=== PATIENT | male | born 1990 | race Caucasian/White ===

== ENCOUNTER 2018-03-25 19:07 | Emergency (ER) | payer MEDICAID ==
[~2018-03-25] VITALS: Ht 188 cm; Wt 95.5 kg
[2018-03-25 19:14] VITALS: Ht 188 cm; Wt 95.5 kg
[2018-03-25 19:48] LABS: APPEARANCE CLEAR (CLEAR); BILIRUBIN NEGATIVE (NEGATIVE); COLOR YELLOW (YELLOW); GLUCOSE NEGATIVE (NEGATIVE); KETONE MODERATE mg/dL (NEGATIVE); NITRITE NEGATIVE (NEGATIVE); PROTEIN TRACE mg/dL (NEGATIVE); SPECIFIC GRAVITY 1.025 (1.005-1.020); UROBILINOGEN NORMAL (NORMAL)
[2018-03-25] MEDS ORDERED: KEFLEX500 MG PO (19:51)
[2018-03-25] MEDS ORDERED: NORCO 7.5/325 T1 TA1 PO (19:51)
[2018-03-25 20:41] VITALS: BP 1128/81
== END 2018-03-25 20:41 | disposition home or self-care (01) ==
LOC: D.ER 19:07
PROVIDERS: Emergency Medicine
DX: J40 Bronchitis, not specified as acute or chronic (principal); R09.89 Other specified symptoms and signs involving the circulatory and respiratory systems; R06.2 Wheezing; R11.2 Nausea with vomiting, unspecified